=== PATIENT | female | born 1990 | race Caucasian/White ===

== ENCOUNTER → 2017-01-03 | Outpatient (CLI) | payer MEDICAID ==
[~2017-01-03] MED LIST: MOTRIN-DPS800 MG PO; PRENATAL VIT1 TAB PO; TYLENOL #3 DPS1 TAB PO
--- NOTE | 2017-01-11 15:13 | OR ---
ADMIT: 01/03/2017 RM/LOC: [facility] MR#: [id number] [address] [id number] JAGRUTI HELLER [address] [place] [address] Operative/Delivery Room Report SEX: F AGE: 26 : 1990 SURGERY DATE: 01/03/2017 SURGEON: Geraldine Rodney MD PREOPERATIVE DIAGNOSIS: Recent Essure tubal sterilization. POSTOPERATIVE DIAGNOSIS: Recent Essure tubal sterilization. PROCEDURE: Essure confirmation test by hysterosalpingogram. BREAD WRAPPER: None. DESCRIPTION OF PROCEDURE: The patient was taken to the fluoroscopy suite where informed consent was obtained. The patient was positioned in the dorsal lithotomy position. Speculum was placed in the patient's vagina and the cervix was cleansed with Betadine x3. The anterior lip of the cervix was grasped with single-tooth tenaculum. The previously flushed acorn uterine manipulator was then inserted through the cervix. A manager mechanical film was taken which revealed both Essure devices in the pelvis. Under fluoroscopic guidance, approximately 10 mL of contrast was inserted into the endometrial cavity. The uterine contour was noted to be normal. The bilateral fallopian tubes were noted to be occluded by the Essure devices in proper placement. All instruments were then removed from the patient's vagina with no bleeding noted from the cervix. The patient tolerated the procedure well. Geraldine Rodney MD/ shilpa JOB #: [id number] CC: Geraldine Rodney, Attending Physician Geraldine Rodney, Family Physician
== END | disposition home or self-care (01) ==
LOC: RAD.S 08:46
DX: Z30.431 Encounter for routine checking of intrauterine contraceptive device (principal)